=== PATIENT | male | born 1965 | race Hispanic/Latino ===

== ENCOUNTER 2020-01-14 20:15 | Emergency (ER) | payer OTHER ==
[2020-01-14] MEDS ORDERED: DIPHENHYDRAMINE 25 MG TAB/CAP ONE (21:10)
[2020-01-14] MEDS ORDERED: METHYLPREDNISOLONE 125 MG INJ ONE (21:10)
[2020-01-14] MEDS ORDERED: FAMOTIDINE 20 MG TAB ONE (21:10)
--- NOTE | 2020-01-14 22:23 | EDPHYS ---
Physician Documentation [facility] Name: Abdi Garvin Age: 54 yrs Sex: Male : 1965 Arrival Date: 01/14/2020 Time: 20:18 Bed 12 Private MD: ED Physician Senthil Abreu HPI: 01/13 20:56 This 54 yrs old Male presents to ER via Ambulatory with complaints of Allergic cp Reaction. 20:56 The patient presents with localized swelling. Onset: The symptoms/episode cp began/occurred just prior to arrival. Possible causes: bees. At home the patient or guardian has treated the symptoms with EpiPen. 20:56 Severity of symptoms: in the emergency department the symptoms have resolved no cp complaints expressed by patient. 20:56 The patient has experienced similar episodes in the past, several times, but today's cp symptoms are not as bad as this previous episode. Family member reports patient has anaphylactic reaction to bee stings and was stung on left index finger. Patient was immediately given epi shot and came to ED. Historical: - Allergies: 20:26 PENICILLINS; ca1 - PMHx: 20:26 Hypertension; ca1 - PSHx: 20:26 None; ca1 - Immunization history:: Adult Immunizations up to date. - Social history:: Smoking status: Patient denies any tobacco usage or history of. ROS: 21:05 Constitutional: Negative for body aches, chills, fever. cp 21:05 Eyes: Negative for injury, pain, redness, and discharge. cp 21:05 ENT: Negative for ear pain, sore throat, difficulty swallowing, difficulty handling secretions. 21:05 Respiratory: Negative for cough, shortness of breath, wheezing. 21:05 Abdomen/GI: Negative for abdominal pain, nausea, vomiting, and diarrhea. 21:05 Skin: Positive for of the left index finger, bee sting. 21:05 Neuro: Negative for altered mental status, headache, weakness. 21:05 All other systems are negative. Exam: 21:10 Constitutional: The patient appears in no acute distress, alert, awake, cp non-diaphoretic, non-toxic, well developed, well nourished. 21:10 Head/Face: Normocephalic, atraumatic. cp 21:10 Eyes: Periorbital structures: appear normal, Conjunctiva: normal, no exudate, no injection, Lids and lashes: appear normal, bilaterally. 21:10 ENT: External ear(s): are unremarkable, Nose: is normal, Mouth: is normal, Posterior pharynx: is normal, airway is patent, no erythema, no exudate. 21:10 Chest/axilla: Inspection: normal, Palpation: is normal, no crepitus, no tenderness. 21:10 Cardiovascular: Rate: normal, Rhythm: regular, Edema: is not appreciated, JVD: is not appreciated. 21:10 Respiratory: the patient does not display signs of respiratory distress, Respirations: normal, no use of accessory muscles, no retractions, labored breathing, is not present, Breath sounds: are clear throughout, no decreased breath sounds, no stridor, no wheezing. 21:10 Abdomen/GI: Exam negative for discomfort, distension, guarding, Inspection: abdomen appears normal. 21:10 Skin: no rash present. Vital Signs: 20:23 BP 122 / 84; Pulse 97; Resp 17 S; Temp 98.6(TE); Pulse Ox 95% on R/A; Weight 95.25 kg ca1 (R); Height 5 ft. 7 in. (170.18 cm) (R); 21:44 BP 126 / 82; Pulse 77; Resp 15 S; Pulse Ox 95% on R/A; ca1 22:50 BP 122 / 80; Pulse 78; Resp 17; Temp 97.7; Pulse Ox 95% on R/A; sg 20:23 Body Mass Index 32.89 (95.25 kg, 170.18 cm) ca1 [place] Coma Score: 22:50 Eye Response: spontaneous(4). Verbal Response: oriented(5). Motor Response: obeys sg commands(6). Total: 15. MDM: 20:55 Patient medically screened. cp 21:00 Differential diagnosis: anaphylaxis, angioedema, Arrhythmias. cp 22:21 Data reviewed: vital signs, nurses notes, and as a result, I will discharge patient. cp 22:21 Counseling: I had a detailed discussion with the patient and/or guardian regarding: the cp historical points, exam findings, and any diagnostic results supporting the discharge/admit diagnosis, to return to the emergency department if symptoms worsen or persist or if there are any questions or concerns that arise at home. ED course: VSS. Patient appears comfortable in exam room and no complaints expressed. Will discharge to home for continued monitoring. Administered Medications: 20:59 Drug: Pepcid 20 mg Route: PO; ca1 21:00 Drug: Benadryl 50 mg Route: PO; ca1 21:02 Drug: SOLU-Medrol 125 mg Route: IM; Site: left gluteus; ca1 Disposition: 01/14 09:03 Co-signature as Attending Physician, Senthil Abreu MD I agree with the assessment and [facility] plan of care. Disposition: 01/14/20 22:22 Discharged to Home. Impression: Toxic effect of venom of bees. - Condition is Stable. - Discharge Instructions: Bee, Wasp, or Hornet Sting, Adult. - Prescriptions for Pepcid 20 mg Oral Tablet - take 1 tablet by ORAL route every 12 hours for 5 days; 10 tablet. Prednisone 20 mg Oral Tablet - take 2 tablet by ORAL route once daily for 5 days; 10 tablet. - Medication Reconciliation Form, Thank You Letter, Antibiotic Education, Prescription Opioid Use form. - Follow up: Private Physician; When: 1 - 2 days; Reason: Recheck today's complaints. - Problem is new. - Symptoms have improved. Signatures: Nirmal Person RN RN sg Anderson, Corey, MD MD cha Page, Corey, PA PA cp Acob, Cheryl RN RN ca1 Corrections: (The following items were deleted from the chart) 01/13 22:29 22:22 01/14/2020 22:22 Discharged to Home. Impression: Toxic effect of venom of bees. sg Condition is Stable. Forms are Medication Reconciliation Form, Thank You Letter, Antibiotic Education, Prescription Opioid Use. Follow up: Private Physician; When: 1 - 2 days; Reason: Recheck today's complaints. Problem is new. Symptoms have improved. cp 01/14 17:43 01/13 20:56 Severity of symptoms: in the emergency department the symptoms have cp improved mildly, cp
--- NOTE | 2020-01-14 22:23 | ER ---
Nurse's Notes [facility] Name: Abdi Garvin Age: 54 yrs Sex: Male : 1965 Arrival Date: 01/14/2020 Time: 20:18 Bed 12 Private MD: Diagnosis: Toxic effect of venom of bees Presentation: 01/13 20:23 Chief complaint: Patient states: Bee sting 30 minutes ago on the 2nd digit of L hand. ca1 EpiPen given [employer]. Denies SOB. Coronavirus screen: Proceed with normal triage. Patient denies a cough. Patient denies shortness of breath or difficulty breathing. Patient denies measured and/or subjective temperature greater than 100.4F prior to today's visit. Patient denies travel on a cruise ship or to a country the [facility] [place] currently [place] as an affected area. Patient denies contact with known and/or suspected case of COVID-19. Ebola Screen: Patient negative for fever greater than or equal to 101.5 degrees Fahrenheit, and additional compatible Ebola Virus Disease symptoms Patient denies exposure to infectious person. Patient denies travel to an Ebola-affected area in the 21 days before illness onset. No symptoms or risks identified at this time. Initial Sepsis Screen: Does the patient meet any 2 criteria? No. Patient's initial sepsis screen is negative. Does the patient have a suspected source of infection? No. Patient's initial sepsis screen is negative. Risk Assessment: Do you want to hurt yourself or someone else? Patient reports no desire to harm self or others. Onset of symptoms was January 14, 2020 at 19:50. 20:23 Method Of Arrival: Ambulatory ca1 20:23 Acuity: MIRIAM 4 ca1 20:35 Onset: The symptoms/episode began/occurred just prior to arrival. Anaphylaxis ca1 evaluation, the patient reports or I have noted the following symptoms which indicate a significant risk of anaphylaxis: no signs or symptoms of anaphylaxis were noted. Historical: - Allergies: 20:26 PENICILLINS; ca1 - PMHx: 20:26 Hypertension; ca1 - PSHx: 20:26 None; ca1 - Immunization history:: Adult Immunizations up to date. - Social history:: Smoking status: Patient denies any tobacco usage or history of. Screenin:33 Abuse screen: Denies threats or abuse. Denies injuries from another. Nutritional ca1 screening: No deficits noted. Tuberculosis screening: No symptoms or risk factors identified. Fall Risk None identified. Assessment: 20:33 General: Appears in no apparent distress. comfortable, Behavior is calm, cooperative. ca1 Pain: Denies pain. Neuro: Level of Consciousness is awake, alert, obeys commands, Oriented to person. Cardiovascular: Heart tones S1 S2 present Capillary refill < 3 seconds Patient's skin is warm and dry. Respiratory: Airway is patent Respiratory effort is even, unlabored, Respiratory pattern is regular, symmetrical, Breath sounds are clear bilaterally. GI: Derm: Skin is intact, is healthy with good turgor, Skin is pink, warm \T\ dry. Musculoskeletal: Circulation, motion, and sensation intact. Capillary refill < 3 seconds. 21:44 Reassessment: Patient appears in no apparent distress at this time. Patient and/or ca1 family updated on plan of care and expected duration. Pain level reassessed. Patient is alert, oriented x 3, equal unlabored respirations, skin warm/dry/pink. Vital Signs: 20:23 BP 122 / 84; Pulse 97; Resp 17 S; Temp 98.6(TE); Pulse Ox 95% on R/A; Weight 95.25 kg ca1 (R); Height 5 ft. 7 in. (170.18 cm) (R); 21:44 BP 126 / 82; Pulse 77; Resp 15 S; Pulse Ox 95% on R/A; ca1 22:50 BP 122 / 80; Pulse 78; Resp 17; Temp 97.7; Pulse Ox 95% on R/A; sg 20:23 Body Mass Index 32.89 (95.25 kg, 170.18 cm) ca1 [place] Coma Score: 22:50 Eye Response: spontaneous(4). Verbal Response: oriented(5). Motor Response: obeys sg commands(6). Total: 15. ED Course: 20:18 Patient arrived in ED. cl3 20:26 Triage completed. ca1 20:26 Arm band placed on right wrist. ca1 20:33 Naomi Maynard, RACHEAL is Primary Nurse. ca1 20:33 Patient has correct armband on for positive identification. Bed in low position. Call ca1 light in reach. Side rails up X 1. Adult w/ patient. Pulse ox on. NIBP on. 20:33 No provider procedures requiring assistance completed. Patient did not have IV access ca1 during this emergency room visit. 20:53 Senthil Oglesby PA is PHCP. cp 20:53 Senthil Abreu MD is Attending Physician. cp Administered Medications: 20:59 Drug: Pepcid 20 mg Route: PO; ca1 21:00 Drug: Benadryl 50 mg Route: PO; ca1 21:02 Drug: SOLU-Medrol 125 mg Route: IM; Site: left gluteus; ca1 Outcome: 22:22 Discharge ordered by . cp 22:25 Discharged to home ambulatory. sg 22:25 Condition: good 22:25 Discharge instructions given to patient, family, Instructed on discharge instructions, follow up and referral plans. medication usage, safety practices, Demonstrated understanding of instructions, follow-up care, medications, Prescriptions given X 2. 22:29 Patient left the ED. sg Signatures: Nirmal Person RN RN Senthil Cline PA PA cp Acob, Cheryl, RN RN ca1 Salo Duarte cl3
[2020-01-14 22:55] VITALS: TEMP 98.6; O2SAT 95
[2020-01-14 22:56] VITALS: BP 126/82
== END 2020-01-14 22:29 | disposition home or self-care (01) ==
LOC: ER 20:15
DX: S60.461A Insect bite (nonvenomous) of left index finger, initial encounter (principal); T63.441A Toxic effect of venom of bees, accidental (unintentional), initial encounter; I10 Essential (primary) hypertension; Z88.0 Allergy status to penicillin
CPT/HCPCS: 96372; 99283; J2930

== ENCOUNTER 2024-06-15 09:46 | Emergency (ER) | payer OTHER ==
--- OUTSIDE RECORDS SUMMARY | 2024-06-15 09:48 | XMS REPORT | Continuity of Care Document ---
Author Name Unknown Address [address] [address] thconnect Address [address] [address] [address] [place] [address] Care Team Providers [employer] Name Role Phone Yara Flores Attending Clinician Unavailable Problems Condition Name Condition Details Condition Category Status Onset Date Resolution Date Last Treatment Date Treating Clinician Comments Source [id number] Mental retardatio n Problem [facility] [id number] Essential hypertensi on Problem [facility] [id number] Seasonal allergic rhinitis due to pollen Problem [facility] [id number] Fatty liver Problem [facility] Body mass index 35.00 to 39.99 Body mass index [BMI] 39.0-39.9, adult Problem [facility] [id number] Other obesity due to excess calories Problem [facility] Obesity Obesity (BMI 30-39.9) Problem [facility] Allergies, Adverse Reactions, Alerts Allergy Name Allergy Type Status Severity Reaction(s) Onset Date Inactive Date Treating Clinician Comments Source 0 Drug allergy Active pass out [facility] Social History Social Habit Start Date Stop Date Quantity Comments Source History of Tobacco Use [facility] Sex Assigned At [facility] Smoking Status Start Date Stop Date Source Never Smoker [facility] Medications Ordered Medication Name Filled Medication Name Start Date Stop Date Current Medication? Ordering Clinician Indication Dosage Frequency Signature (SIG) Comments Components Source Valsartan 80 MG Valsartan 80 MG No Valsartan 80 MG amLODIPine Besylate 10 MG amLODIPine Besylate 10 MG No 1{table t} BID amLODIPine Besylate 10 MG Immunizations Ordered Immunization Name Filled Immunization Name Date Status Comments Source Flucelvax - multidose vial Flucelvax - multidose vial 2018-07-24 09:52:00 Completed [facility] Flucelvax (ccIIV4) - MDV - 0.5mL Flucelvax (ccIIV4) - MDV - 0.5mL Unknown Completed [facility] Flucelvax (ccIIV4) - MDV - 0.5mL Flucelvax (ccIIV4) - MDV - 0.5mL Unknown Completed [facility] Flucelvax (ccIIV4) - MDV - 0.5mL Flucelvax (ccIIV4) - MDV - 0.5mL Unknown Completed [facility] Flucelvax - multidose vial Flucelvax - multidose vial Unknown Completed [facility] Flucelvax - multidose vial Flucelvax - multidose vial Unknown Completed [facility] Flucelvax - multidose vial Flucelvax - multidose vial Unknown Completed [facility] Vital Signs Vital Name Observation Time Observation Value Comments S ource height 2024-05-08 09:40:00 64 [in_i] Commo n [facility] weight 2024-05-08 09:40:00 225.0 [lb_av] Co mmon [facility] temperature 2024-05-08 09:40:00 97.3 [degF] Com mon [facility] bmi 2024-05-08 09:40:00 38.62 kg/m2 Comm on [facility] oximetry 2024-05-08 09:40:00 97 % Commo n [facility] respiratory rate 2024-05-08 09:40:00 15 /min [facility] blood pressure systolic 2024-05-08 09:40:00 116 mm[Hg] [facility] blood pressure diastolic 2024-05-08 09:40:00 87 mm[Hg] Common Sp[facility] height 2024-02-06 09:40:00 64 [in_i] Commo n [facility] weight 2024-02-06 09:40:00 227.8 [lb_av] Co mmon [facility] temperature 2024-02-06 09:40:00 97.2 [degF] Com mon [facility] bmi 2024-02-06 09:40:00 39.1 kg/m2 Commo n [facility] oximetry 2024-02-06 09:40:00 95 % Commo n [facility] respiratory rate 2024-02-06 09:40:00 16 /min [facility] blood pressure systolic 2024-02-06 09:40:00 110 mm[Hg] [facility] blood pressure diastolic 2024-02-06 09:40:00 75 mm[Hg] [facility] height 2024-02-06 09:40:00 64 [in_i] Commo n [facility] weight 2024-02-06 09:40:00 227.8 [lb_av] Co mmon [facility] temperature 2024-02-06 09:40:00 97.2 [degF] Com mon [facility] bmi 2024-02-06 09:40:00 39.1 kg/m2 Commo n [facility] oximetry 2024-02-06 09:40:00 95 % Commo n [facility] respiratory rate 2024-02-06 09:40:00 16 /min [facility] blood pressure systolic 2024-02-06 09:40:00 110 mm[Hg] [facility] blood pressure diastolic 2024-02-06 09:40:00 75 mm[Hg] Common [facility] height 2023-10-05 08:40:00 64 [in_i] Commo n [facility] weight 2023-10-05 08:40:00 226.0 [lb_av] Co [facility] temperature 2023-10-05 08:40:00 97.2 [degF] Com [facility] bmi 2023-10-05 08:40:00 38.79 kg/m2 Comm on [facility] oximetry 2023-10-05 08:40:00 95 % Commo n [facility] respiratory rate 2023-10-05 08:40:00 16 /min [facility] blood pressure systolic 2023-10-05 08:40:00 131 mm[Hg] [facility] blood pressure diastolic 2023-10-05 08:40:00 83 mm[Hg] Common [facility] bmi 2023-06-04 14:00:00 40.13 kg/m2 Comm on [facility] oximetry 2023-06-04 14:00:00 95 % Commo n [facility] respiratory rate 2023-06-04 14:00:00 15 /min [facility] blood pressure systolic 2023-06-04 14:00:00 107 mm[Hg] [facility] blood pressure diastolic 2023-06-04 14:00:00 75 mm[Hg] Common [facility] height 2023-06-04 14:00:00 64 [in_i] Commo n [facility] weight 2023-06-04 14:00:00 233.8 [lb_av] Co [facility] temperature 2023-06-04 14:00:00 97.5 [degF] Com [facility] height 2023-02-01 14:20:00 64 [in_i] Commo n [facility] weight 2023-02-01 14:20:00 232.4 [lb_av] Co mmon [facility] temperature 2023-02-01 14:20:00 97.5 [degF] Com mon [facility] bmi 2023-02-01 14:20:00 39.89 kg/m2 Comm on [facility] oximetry 2023-02-01 14:20:00 96 % Commo n [facility] respiratory rate 2023-02-01 14:20:00 15 /min Common [facility] blood pressure systolic 2023-02-01 14:20:00 108 mm[Hg] [facility] blood pressure diastolic 2023-02-01 14:20:00 81 mm[Hg] Common [facility] height 2022-11-01 09:40:00 64 [in_i] Commo n [facility] weight 2022-11-01 09:40:00 233.2 [lb_av] [facility] 2022-11-01 09:40:00 98.9 [degF] Com [facility] bmi 2022-11-01 09:40:00 40.02 kg/m2 Comm on [facility] oximetry 2022-11-01 09:40:00 96 % Commo n [facility] respiratory rate 2022-11-01 09:40:00 17 /min Common [facility] blood pressure systolic 2022-11-01 09:40:00 115 mm[Hg] Common Spiri [facility] blood pressure diastolic 2022-11-01 09:40:00 79 mm[Hg] [facility] height 2022-11-01 10:00:00 64 [in_i] Commo n [facility] weight 2022-11-01 10:00:00 233.2 [lb_av] [facility] 2022-11-01 10:00:00 98.9 [degF] Com mon [facility] bmi 2022-11-01 10:00:00 40.02 kg/m2 Comm on [facility] oximetry 2022-11-01 10:00:00 96 % Commo n [facility] respiratory rate 2022-11-01 10:00:00 17 /min [facility] blood pressure systolic 2022-11-01 10:00:00 115 mm[Hg] [facility] blood pressure diastolic 2022-11-01 10:00:00 79 mm[Hg] [facility] height 2022-08-03 09:40:00 64 [in_i] Commo n [facility] weight 2022-08-03 09:40:00 241 [lb_av] Comm on [facility] temperature 2022-08-03 09:40:00 98.1 [degF] Com mon [facility] bmi 2022-08-03 09:40:00 41.36 kg/m2 Comm on [facility] oximetry 2022-08-03 09:40:00 97 % Commo n [facility] respiratory rate 2022-08-03 09:40:00 17 /min [facility] blood pressure systolic 2022-08-03 09:40:00 109 mm[Hg] [facility] blood pressure diastolic 2022-08-03 09:40:00 82 mm[Hg] [facility] Encounters Start Date/Time End Date/Time Encounter Type Admission Type Attending [facility] Care Facility Care Department Encounter ID Source 2024-05-06 09:57:01 Outpatient Mark Yara [facility] [id number] [facility] 2024-02-04 08:28:01 Outpatient Yara Flores [facility] [id number] [facility] 2023-10-03 08:03:00 Outpatient Mark Yara [facility] [id number] [facility] 2023 08:13:02 Outpatient Yara Flores [facility] [id number] [facility] 2022-08-03 09:26:05 Outpatient Yara Flores [facility] [id number] [facility] 2024-05-08 00:00:00 2024-05-08 00:00:00 OFFICE VISIT ESTAB PT LEVEL 4 [facility] [id number] [facility] 2024-02-06 00:00:00 2024-02-06 00:00:00 OFFICE VISIT ESTAB PT LEVEL 3 [facility] [id number] [facility] 2024-02-06 00:00:00 2024-02-06 00:00:00 SUB ANNUAL MCR WELLNESS VISIT [facility] [id number] [facility] 2023-10-05 00:00:00 2023-10-05 00:00:00 OFFICE VISIT ESTAB PT LEVEL 3 [facility] [id number] [facility] 2023-06-04 00:00:00 2023-06-04 00:00:00 OFFICE VISIT ESTAB PT LEVEL 3 [facility] [id number] [facility] 2023-02-01 00:00:00 2023-02-01 00:00:00 OFFICE VISIT ESTAB PT LEVEL 3 [facility] [id number] [facility] 2022-11-01 00:00:00 2022-11-01 00:00:00 OFFICE VISIT ESTAB PT LEVEL 3 [facility] [id number] [facility] 2022-11-01 00:00:00 2022-11-01 00:00:00 SUB ANNUAL MCR WELLNESS VISIT [facility] [id number] [facility] 2022-08-03 00:00:00 2022-08-03 00:00:00 OFFICE VISIT EST PT LEVEL 3 [facility] [id number] [facility] Results Test Description Test Time Test Comments Results Result Co mments Source COMPREHENSIVE METABOLIC PANEL(CMP)2023-02-07 00:00:00* Test Item Value Reference Range Interpretation Comme nts ALBUMIN (test code = 1751-7) 4.4 g/dL See_Comment N [Automated message] The system which generated this result transmitted reference range: 3.6-5.1 g/dL. The reference range was not used to interpret this result as normal/abnormal. ALBUMIN/GLOBULIN RATIO (test code = 1759-0) 1.3 (calc) See_Comment N [Automated message] The system which generated this result transmitted reference range: 1.0-2.5 (calc). The reference range was not used to interpret this result as normal/abnormal. ALKALINE PHOSPHATASE (test code = 6768-6) 82 U/L See_Comment N [Automated message] The system which generated this result transmitted reference range: 35-144 U/L. The reference range was not used to interpret this result as normal/abnormal. ALT (test code = 1742-6) 15 U/L See_Comment N [Automated message] The system which generated this result transmitted reference range: 9-46 U/L. The reference range was not used to interpret this result as normal/abnormal. AST (test code = 1920-8) 14 U/L See_Comment N [Automated message] The system which generated this result transmitted reference range: 10-35 U/L. The reference range was not used to interpret this result as normal/abnormal. BILIRUBIN, TOTAL (test code = 1975-2) 0.7 mg/dL See_Comment N [Automated message] The system which generated this result transmitted reference range: 0.2-1.2 mg/dL. The reference range was not used to interpret this result as normal/abnormal. BUN/CREATININE RATIO (test code = 3097-3) NOT APPLICABLE (calc) See_Comment [Automated message] The system which generated this result transmitted reference range: 6-22 (calc). The reference range was not used to interpret this result as normal/abnormal. CALCIUM (test code = 49433-6) 9.6 mg/dL See_Comment N [Automated message] The system which generated this result transmitted reference range: 8.6-10.3 mg/dL. The reference range was not used to interpret this result as normal/abnormal. CARBON DIOXIDE (test code = 2027-9) 27 mmol/L See_Comment N [Automated message] The system which generated this result transmitted reference range: 20-32 mmol/L. The reference range was not used to interpret this result as normal/abnormal. CHLORIDE (test code = 5-0) 90 mmol/L See_Comment L [Automated message] The system which generated this result transmitted reference range: 98-110 mmol/L. The reference range was not used to interpret this result as normal/abnormal. CREATININE (test code = 2160-0) 1.03 mg/dL See_Comment N [Automated message] The system which generated this result transmitted reference range: 0.70-1.30 mg/dL. The reference range was not used to interpret this result as normal/abnormal. GLOBULIN (test code = 46393-8) 3.5 g/dL (calc) See_Comment N [Automated message] The system which generated this result transmitted reference range: 1.9-3.7 g/dL (calc). The reference range was not used to interpret this result as normal/abnormal. GLUCOSE (test code = 2345-7) 102 mg/dL See_Comment H [Automated message] The system which generated this result transmitted reference range: 65-99 mg/dL. The reference range was not used to interpret this result as normal/abnormal. POTASSIUM (test code = 2823-3) 4.0 mmol/L See_Comment N [Automated message] The system which generated this result transmitted reference range: 3.5-5.3 mmol/L. The reference range was not used to interpret this result as normal/abnormal. PROTEIN, TOTAL (test code = 2885-2) 7.9 g/dL See_Comment N [Automated message] The system which generated this result transmitted reference range: 6.1-8.1 g/dL. The reference range was not used to interpret this result as normal/abnormal. SODIUM (test code = 2951-2) 125 mmol/L See_Comment L [Automated message] The system which generated this result transmitted reference range: 135-146 mmol/L. The reference range was not used to interpret this result as normal/abnormal. UREA NITROGEN (BUN) (test code = 3094-0) 9 mg/dL See_Comment N [Automated message] The system which generated this result transmitted reference range: 7-25 mg/dL. The reference range was not used to interpret this result as normal/abnormal.
[2024-06-15 10:23] LABS: Absolute Basophils 0.1 K/uL (0-0.5); Absolute Eosinophils 0.1 K/uL (0-0.5); Absolute Lymphocytes (CBC) 1.2 K/uL (0.7-4.9); Absolute Monocytes 0.4 K/uL (0.1-1.3); Absolute Neutrophil 6.3 K/uL (1.8-8.0); Basophils % 0.6 % (0-1.3); Eosinophils % 1.1 % (0-4.4); Hematocrit 41.1 % (39.6-49.0); Hemoglobin 14.3 g/dL (13.6-17.9); Lymphocytes % 14.7 % (15.3-44.8); MCHC 34.7 g/dL (32.0-36.0); MCV 89.3 fL (80-100); MPV 6.3 fL (7.6-11.3); Monocytes % 4.9 % (3.3-12.3); Neutrophils % 78.7 % (41.7-73.7); Nucleated Red Blood Cells % 0.1 % (0-0); Platelets 472 thou/uL (152-406); Red Cell Distribution Width 12.9 % (12.1-15.2)
--- NOTE | 2024-06-15 10:32 | RAD REPORT ---
EXAMINATION: CT HEAD WITHOUT CONTRAST CLINICAL INDICATION: Male, 59 years old.TRAUMA TECHNIQUE: Axial CT images from the skull base to the vertex without intravenous contrast. Coronal an d sagittal reformatted images were created from the data set. One or more of the following dose reduction techniques were used: Automated exposure control, adjustment of the mA and/or kV according to patient size, and/or iterative reconstruction. Unless otherwise specified, incidental findings do not require dedicated imaging follow-up. [id number]. COMPARISON: No prior exam. FINDINGS: INTRACRANIAL: No acute intracranial hemorrhage. No hydrocephalus. No mass effect or midline shift. Ab sent corpus callosum. Megacisterna magna. VASCULATURE: No visualized abnormalities in the arteries or dural venous sinuses. SCALP/SKULL: Bilateral mastoid effusions. SINUSES: Circumferential thickening in the maxillary sinuses. IMPRESSION: No acute intracranial abnormality. No skull fracture.
--- NOTE | 2024-06-15 10:33 | RAD REPORT ---
EXAMINATION: ONE VIEW CHEST XR CLINICAL INDICATION: Male, 59 years old.DYSPNEA TECHNIQUE: 1 View, AP supine, X-ray of the chest was performed. [id number]. COMPARISON: 10/10/2013 FINDINGS: Lungs and pleura: Clear lungs. No effusion. Heart and mediastinum: Normal heart size. Unremarkable mediastinal contours. Osseous structures: No acute abnormality. Tubes/lines: None Other: None. IMPRESSION: No acute intrathoracic abnormality.
[2024-06-15 10:44] LABS: Albumin 3.6 g/dL (3.4-5.0); Albumin/Globulin Ratio 0.8 (1.1-1.8); Anion Gap 10.9 mEq/L (5.0-15.0); Bilirubin Total 0.5 mg/dL (0.2-1.0); Globulin 4.7 g/dL (2.3-3.5); Potassium 3.9 mEq/L (3.5-5.1); Protein, Total 8.3 g/dL (6.4-8.2); Troponin High Sensitivity 5.1 pg/mL (<58.9)
[2024-06-15] MEDS ORDERED: NA CHLORIDE 0.9% 1,000 ML ONE (11:05)
--- NOTE | 2024-06-15 12:22 | ER ---
Nurse's Notes [facility] Name: Abdi Garvin Age: 59 yrs Sex: Male : 1965 Arrival Date: 06/15/2024 Time: 09:46 Bed 3 Private MD: Diagnosis: Orthostatic hypotension;Hyponatremia Presentation: 06/15 09:57 Chief complaint: Patient states: Weak with 2 falls today. 2nd fall he hit his forehead. ll1 N LOC. Chief complaint: EMS states: Gave report to Jluis Maradiaga. Coronavirus screen: Client denies travel out of the [place] in the last 14 days. At this time, the client does not indicate any symptoms associated with coronavirus-19. Ebola Screen: Patient denies travel to an Ebola-affected area in the 21 days before illness onset. Initial Sepsis Screen: Does the patient meet any 2 criteria? No. Patient's initial sepsis screen is negative. Does the patient have a suspected source of infection? No. Patient's initial sepsis screen is negative. Risk Assessment: Do you want to hurt yourself or someone else? Patient reports no desire to harm self or others. Onset of symptoms was June 15, 2024. 09:57 Method Of Arrival: EMS: [facility] ll1 09:57 Acuity: MIRIAM 3 ll1 Triage Assessment: 09:58 General: Appears in no apparent distress. Behavior is calm, cooperative, appropriate ll1 for age, Reports fatigue for. EENT: Reports forehead pain. Neuro: Reports headache weakness. Historical: - Allergies: 09:56 PENICILLINS; ll1 - Home Meds: 09:56 amlodipine oral [Active]; valsartan oral [Active]; ll1 - PMHx: 09:56 Hypertension; ll1 - Immunization history:: Adult Immunizations up to date. - Infectious Disease History:: Denies. - Social history:: Smoking status: Patient denies any tobacco usage or history of. Screenin:37 [facility] ED Fall Risk Assessment (Adult) History of falling in the last 3 months, ll1 including since admission Yes- physiologic fall (2 pts) Confusion or Disorientation Yes (5 pts) Intoxicated or Sedated Yes (3 pts) Impaired Gait Yes (1 pt) Mobility Assist Device Used No (0 pt) Altered Elimination No (0 pt) Score/Fall Risk Level 3 or more points = High Risk Maintained a safe environment, Hourly rounding (assess needs \T\ fall precautionary measures) done, Remained with patient while ambulating. Abuse screen: Denies threats or abuse. Nutritional screening: No deficits noted. 11:09 Tuberculosis screening: No symptoms or risk factors identified. ll1 Assessment: 10:36 Reassessment: No changes from previously documented assessment. Patient and/or family ll1 updated on plan of care and expected duration. Pain level reassessed. Patient is alert, oriented x 3, equal unlabored respirations, skin warm/dry/pink. 11:09 Reassessment: No changes from previously documented assessment. Patient and/or family ll1 updated on plan of care and expected duration. Pain level reassessed. Patient is alert, oriented x 3, equal unlabored respirations, skin warm/dry/pink. Vital Signs: 09:57 BP 104 / 73; Pulse 80; Resp 18; Temp 97.8; Pulse Ox 93% on R/A; Weight 105.23 kg; ll1 Height 6 ft. 1 in. ; Pain 0/10; 10:28 BP 112 / 79 Supine; Pulse 70; ll1 10:30 BP 110 / 82 Sitting; Pulse 92; ll1 10:32 BP 101 / 77 Standing; Pulse 105; ll1 11:08 BP 121 / 90; Pulse 70; Resp 18; Pulse Ox 94% on R/A; ll1 11:51 BP 123 / 92; Pulse 70; Resp 18; Pulse Ox 94% on R/A; ll1 12:40 BP 123 / 90; Pulse 67; Resp 16; Temp 98.4; Pulse Ox 95% ; me1 09:57 Body Mass Index 30.61 (105.23 kg, 185.42 cm) ll1 09:57 Pain Scale: Adult ll1 ED Course: 09:52 Patient arrived in ED. ll1 09:56 Arm band placed on Patient placed in an exam room, on a stretcher. ll1 09:57 Tomas Maradiaga PA is PHCP. jr8 09:57 Katerine Mobley MD is Attending Physician. jr8 09:58 Triage completed. ll1 09:59 Nilay Duarte, RACHEAL is Primary Nurse. ll1 10:10 Inserted saline lock: 22 gauge in right antecubital area, using aseptic technique. ll1 Blood collected. Flushed with 10 mL NS. 10:20 CT Head Brain wo Cont In Process Unspecified. EDMS 10:27 XRAY Chest (1 view) In Process Unspecified. EDMS 10:36 Warm blanket given. ll1 10:37 Patient has correct armband on for positive identification. Call light in reach. ll1 Provided Education on: ER procedures and process. Client placed on continuous cardiac and pulse oximetry monitoring. NIBP monitoring applied. internet marketing assistant on. 13:13 No provider procedures requiring assistance completed. IV discontinued, intact, me1 bleeding controlled, No redness/swelling at site. Pressure dressing applied. Administered Medications: 11:08 Drug: NS 0.9% IV 1000 ml IV at 1000 ml once; to be given as a bolus over 60 minutes ll1 Route: IV; Rate: 1000 ml; Site: right antecubital; 13:14 Follow up: Response: No adverse reaction; IV Status: Completed infusion; IV Intake: me1 1000ml Medication: 11:09 VIS not applicable for this client. ll1 Intake: 13:14 IV: 1000ml; Total: 1000ml. me1 Outcome: 12:22 Discharge ordered by MD. fonseca 13:13 Discharged to home via wheelchair, with family, me1 13:13 Condition: stable 13:13 Discharge instructions given to patient, family, Instructed on discharge instructions, follow up and referral plans. Demonstrated understanding of instructions, follow-up care, 13:14 Patient left the ED. me1 Signatures: Dispatcher [employer] Tomas Fitzgerald PA PA jr8 Nilay Duarte RN RN 1 Norma Soto RN RN me1 Corrections: (The following items were deleted from the chart) 10:35 10:28 BP 112 / 79; Pulse 70bpm; ll1 ll1
--- NOTE | 2024-06-15 12:22 | EDPHYS ---
Physician Documentation [facility] Name: Abdi Garvin Age: 59 yrs Sex: Male : 1965 Arrival Date: 06/15/2024 Time: 09:46 Bed 3 Private MD: ED Physician Katerine Mobley HPI: 06/15 10:30 This 59 yrs old Male presents to ER via EMS with complaints of Hypotension, jr8 fall, weakness. 10:30 59-year-old male patient presents the emergency room via EMS after sustaining 2 falls jr8 this morning. Patient stated that he was feeling weak and lightheaded, EMS on scene noted that patient was hypotensive in the 80s systolic. Patient currently 104/73. Family upon arrival stated that he has been compliant with his hypertensive medications and has not taken too much. No recent illnesses or other issues that they are aware of. Denies any other medical history or history of hypotension in the past. Family did say last month was diagnosed with hyponatremia and has been on a water restriction. Stated that he does tend to drink a lot of water.. The patient has not experienced similar symptoms in the past. The patient has not recently seen a physician. Historical: - Allergies: 09:56 PENICILLINS; ll1 - Home Meds: 09:56 amlodipine oral [Active]; valsartan oral [Active]; ll1 - PMHx: 09:56 Hypertension; ll1 - Immunization history:: Adult Immunizations up to date. - Infectious Disease History:: Denies. - Social history:: Smoking status: Patient denies any tobacco usage or history of. ROS: 10:30 Eyes: Negative for injury, pain, redness, and discharge, ENT: Negative for injury, jr8 pain, and discharge, Neck: Negative for injury, pain, and swelling, Cardiovascular: Negative for chest pain, palpitations, and edema, Respiratory: Negative for shortness of breath, cough, wheezing, and pleuritic chest pain, Abdomen/GI: Negative for abdominal pain, nausea, vomiting, diarrhea, and constipation, Back: Negative for injury and pain, MS/Extremity: Negative for injury and deformity, Skin: Negative for injury, rash, and discoloration, 10:30 Constitutional: Positive for fatigue, 10:30 Neuro: Positive for dizziness, Exam: 10:43 Constitutional: This is a well developed, well nourished patient who is awake, alert, jr8 and in no acute distress. Head/Face: Normocephalic, atraumatic. Eyes: Pupils equal round and reactive to light, extra-ocular motions intact. Lids and lashes normal. Conjunctiva and sclera are non-icteric and not injected. Cornea within normal limits. Periorbital areas with no swelling, redness, or edema. ENT: Nares patent. No nasal discharge, no septal abnormalities noted. Tympanic membranes are normal and external auditory canals are clear. Oropharynx with no redness, swelling, or masses, exudates, or evidence of obstruction, uvula midline. Mucous membranes moist. Neck: Trachea midline, no thyromegaly or masses palpated, and no cervical lymphadenopathy. Supple, full range of motion without nuchal rigidity, or vertebral point tenderness. No Meningismus. Cardiovascular: Regular rate and rhythm with a normal S1 and S2. No gallops, murmurs, or rubs. Normal PMI, no JVD. No pulse deficits. Respiratory: Lungs have equal breath sounds bilaterally, clear to auscultation and percussion. No rales, rhonchi or wheezes noted. No increased work of breathing, no retractions or nasal flaring. Abdomen/GI: Soft, non-tender, with normal bowel sounds. No distension or tympany. No guarding or rebound. No evidence of tenderness throughout. Back: No spinal tenderness. No costovertebral tenderness. Full range of motion. Skin: Warm, dry with normal turgor. Normal color with no rashes, no lesions, and no evidence of cellulitis. MS/ Extremity: Pulses equal, no cyanosis. Neurovascular intact. Full, normal range of motion. Neuro: Awake and alert, GCS 15, oriented to person, place, time, and situation. Motor strength 5/5 in all extremities. Sensory grossly intact. Cerebellar exam normal. Normal gait. 10:43 ECG was reviewed by the Attending Physician. Vital Signs: 09:57 BP 104 / 73; Pulse 80; Resp 18; Temp 97.8; Pulse Ox 93% on R/A; Weight 105.23 kg; ll1 Height 6 ft. 1 in. ; Pain 0/10; 10:28 BP 112 / 79 Supine; Pulse 70; ll1 10:30 BP 110 / 82 Sitting; Pulse 92; ll1 10:32 BP 101 / 77 Standing; Pulse 105; ll1 11:08 BP 121 / 90; Pulse 70; Resp 18; Pulse Ox 94% on R/A; ll1 11:51 BP 123 / 92; Pulse 70; Resp 18; Pulse Ox 94% on R/A; ll1 12:40 BP 123 / 90; Pulse 67; Resp 16; Temp 98.4; Pulse Ox 95% ; me1 09:57 Body Mass Index 30.61 (105.23 kg, 185.42 cm) ll1 09:57 Pain Scale: Adult ll1 MDM: 09:58 Medical Screening Exam initiated jr8 12:16 Differential Diagnosis altered mental status, Orthostatic hypotension, hypoglycemia, jr8 hyperglycemia, electrolyte dysfunction, WILSON, dehydration, epidural hematoma, subdural hematoma. Data reviewed: vital signs, nurses notes, lab test result(s), EKG, radiologic studies, CT scan. Counseling: I had a detailed discussion with the patient and/or guardian regarding the historical points, exam findings, and any diagnostic results supporting the discharge/admit diagnosis, lab results, radiology results, the need for outpatient follow up, a family practitioner, to return to the emergency department if symptoms worsen or persist or if there are any questions or concerns that arise at home. ED course: Patient feeling better after fluids. No longer hypotensive or orthostatic at this point. Hemodynamically stable otherwise no acute findings on imaging, EKG or labs other than the hyponatremia which they have known about. No focal neurologic deficit, numbness, tingling, or other neurologic findings on physical exam at this time after reassessment. Discussed with family to still monitor for any changes and to follow-up for the hyponatremia. Still to do regular water restriction to ensure that his hyponatremia does not get worse. If he were to have any change or worsening to immediately come back to the emergency room. Family and patient understood and agree with plan at this time.. 06/15 09:59 Order name: CBC with Diff; Complete Time: 10:28 06/15 09:59 Order name: Magnesium; Complete Time: 10:52 06/15 09:59 Order name: Troponin HS; Complete Time: 10:52 06/15 09:59 Order name: CMP; Complete Time: 10:06/15 09:59 Order name: XRAY Chest (1 view); Complete Time: 10:34 8 06/15 09:59 Order name: CT Head Brain wo Cont; Complete Time: 10:34 06/15 09:59 Order name: Cardiac monitoring; Complete Time: 10:08 06/15 09:59 Order name: EKG - Nurse/Tech; Complete Time: 10:08 06/15 09:59 Order name: IV Saline Lock; Complete Time: 10:14 06/15 09:59 Order name: Labs collected and sent; Complete Time: 10:06/15 09:59 Order name: O2 Per Protocol; Complete Time: 09:59 06/15 09:59 Order name: O2 Sat Monitoring; Complete Time: 09:59 06/15 09:59 Order name: Orthostatic Blood Pressure; Complete Time: 10:35 EC:43 Rate is 81 beats/min. Rhythm is regular, Normal Sinus Rhythm. Left axis deviation jr8 noted. VT interval is prolonged at 246 msec. QRS interval is normal at 90 msec. QT interval is normal at 462 msec. No Q waves. T waves are Normal. No ST changes noted. Clinical impression: 1st degree heart block. Interpreted by me. Reviewed by me. Administered Medications: 11:08 Drug: NS 0.9% IV 1000 ml IV at 1000 ml once; to be given as a bolus over 60 minutes ll1 Route: IV; Rate: 1000 ml; Site: right antecubital; 13:14 Follow up: Response: No adverse reaction; IV Status: Completed infusion; IV Intake: me1 1000ml Disposition Summary: 06/15/24 12:22 Discharge Ordered Notes: Location: Home jr8 Problem: new jr8 Symptoms: have improved jr8 Condition: Stable jr8 Diagnosis - Orthostatic hypotension jr8 - Hyponatremia jr8 Followup: jr8 - With: Private Physician - When: 1 - 2 days - Reason: Recheck today's complaints, Continuance of care, Re-evaluation by your physician Discharge Instructions: - Discharge Summary Sheet jr8 - Hypotension jr8 - Orthostatic Hypotension jr8 Forms: - Medication Reconciliation Form jr8 - Antibiotic Education jr8 - Prescription Opioid Use jr8 - Patient Portal Instructions jr8 - Leadership Thank You Letter jr8 Signatures: Dispatcher [employer] EDTomas Emerson PA PA jr8 Nilay Duarte RN RN ll1 Norma Soto RN me1 Corrections: (The following items were deleted from the chart) 09:59 09:59 CBC+H.LAB.BRZ ordered. EDMS EDMS 09:59 09:59 MAGNESIUM+C.LAB.BRZ ordered. EDMS EDMS 09:59 09:59 Troponin High Sensitivity+C.LAB.BRZ ordered. EDMS EDMS 09:59 09:59 COMPREHENSIVE METABOLIC PANEL+C.LAB.BRZ ordered. EDMS EDMS 09:59 09:59 Chest Single View+RAD.RAD.BRZ ordered. EDMS EDMS 10:00 10:00 Head Brain Wo Cont+CT.RAD.BRZ ordered. EDGA EDMS 12:23 12:16 ED course: Patient feeling better after fluids. No longer hypotensive or jr8 orthostatic at this point. Hemodynamically stable otherwise no acute findings on imaging, EKG or labs other than the hyponatremia which they have known about. Discussed with family to still monitor for any changes and to follow-up for the hyponatremia. Still to do regular water restriction to ensure that his hyponatremia does not get worse. If he were to have any change or worsening to immediately come back to the emergency room. Family and patient understood and agree with plan at this time.. jr8
[2024-06-15 14:31] VITALS: BP 123/90; TEMP 98.4; O2SAT 95
--- NOTE | 2024-06-17 12:24 | EKG ---
Test Date: 2024-06-15 Test Time: 11:06:23 Sales Project Coordinator: BINA MEASUREMENT RESULTS: Intervals: Rate: 81 NV: 246 QRSD: 90 QT: 398 QTc: 462 Lolo: P: 33 NV: 246 QRS: -71 T: 68 INTERPRETIVE STATEMENTS: Sinus rhythm with 1st degree AV block Left axis deviation Abnormal ECG No previous ECG available for comparison Electronically Signed On 06-17-24 12:18:28 [employer]PORT SECURITY SCREENER by Rod Taylor
== END 2024-06-15 13:14 | disposition home or self-care (01) ==
LOC: ER 09:46
DX: I95.1 Orthostatic hypotension (principal); E87.1 Hypo-osmolality and hyponatremia; I10 Essential (primary) hypertension; W19.XXXA Unspecified fall, initial encounter
CPT/HCPCS: 96361; 85025; 36415; 83735; 84484; 80053; 70450; 71045; 96360; 99285; J7030; 93005